=== PATIENT | male | born 1930 | race Caucasian/White ===

== ENCOUNTER 2017-10-09 13:28 | Inpatient (IN) | payer MEDICARE, OTHER ==
[2017-10-09] MEDS ORDERED: MORPHINE SULFATE 2 MG/ML DISP.SYRIN. IV (14:00)
[2017-10-09] MEDS ORDERED: MORPHINE SULFATE 4 MG/ML DISP.SYRIN. IV (14:00)
[2017-10-09] MEDS ORDERED: ONDANSETRON PF 4 MG/2 ML VIAL. IV (14:15)
[2017-10-09] MEDS: IV NORMAL SALINE 1000ML BAG 1,000 ML IV (14:43)
[2017-10-09] MEDS: cefTRIAXone IV Push 1 GM VIAL. IVP (14:45)
[2017-10-09] MEDS ORDERED: HYDROcodone/APAP 5/325MG 1 TAB TABLET PO (15:15)
[2017-10-09 17:03] LABS: POC GLUCOSE 133 mg/dL (70-99)
[2017-10-09 20:25] LABS: POC GLUCOSE 132 mg/dL (70-99)
[2017-10-09] MEDS: LACTOBACILLUS RHAMNOSUS GG 1 CAPSULE. PO (21:09)
[2017-10-09] MEDS: TAMSULOSIN 0.4 MG CAP.ER.24H. PO (21:09)
[2017-10-09] MEDS: HYDROcodone/APAP 5/325MG 1 TAB TABLET PO (21:11)
[2017-10-10] MEDS: IV NORMAL SALINE 1000ML BAG 1,000 ML IV ×2 (06:35→16:40)
[2017-10-10 07:38] LABS: POC GLUCOSE 111 mg/dL (70-99)
[2017-10-10] MEDS: LACTOBACILLUS RHAMNOSUS GG 1 CAPSULE. PO (08:37)
[2017-10-10] MEDS ORDERED: ACETAMINOPHEN 325 MG TABLET. PO (09:00)
[2017-10-10 09:38] LABS: ADD MAN DIFF? NO
[2017-10-10 09:45] LABS: BASO % 1 % (0-3); EOS % 0 % (0-3); HEMATOCRIT 38.7 % (39.0-53.0); HEMOGLOBIN 12.9 g/dL (13.0-17.5); LYMPH # 0.6 x10^3/uL (1.0-4.8); LYMPH % 6 % (24-48); MEAN CORPUSCULAR HEMOGLOBIN 28 pg (25-35); MEAN CORPUSCULAR HGB CONC 33 g/dL (31-37); MEAN CORPUSCULAR VOLUME 84 fL (79-100); MONO # 1.4 x10^3/uL (0.0-1.1); MONO % 14 % (0-9); NEUT % 80 % (31-73); PLATELET COUNT 157 x10^3/uL (140-400); RED CELL DISTRIBUTION WIDTH 17.2 % (11.5-14.5)
[2017-10-10 09:49] LABS: ANION GAP 4 (6-14); BLOOD UREA NITROGEN 18 mg/dL (8-26); CARBON DIOXIDE 28 mmol/L (21-32); CHLORIDE 103 mmol/L (98-107); CREATININE 1.2 mg/dL (0.7-1.3); GFR 57.4; GLUCOSE 146 mg/dL (70-99); POTASSIUM 3.5 mmol/L (3.5-5.1); SODIUM 135 mmol/L (136-145)
[2017-10-10 11:26] LABS: POC GLUCOSE 115 mg/dL (70-99)
[2017-10-10] MEDS: ACETAMINOPHEN/CODEINE 300/30MG TABLET. PO (12:45)
[2017-10-10] MEDS ORDERED: ACETAMINOPHEN/CODEINE 300/30MG TABLET. PO (12:45)
[2017-10-10] MEDS: MAGNESIUM HYDROXIDE 2,400 MG/30 ML ORAL.SUSP. PO (13:45)
[2017-10-10] MEDS ORDERED: IOHEXOL 300 MG/ML 100ML VIAL. (14:31)
[2017-10-10] MEDS ORDERED: LIDOCAINE 2% JELLY 6ML IN APPLICATOR. (14:31)
[2017-10-10] MEDS: cefTRIAXone IV Push 1 GM VIAL. IVP (14:49)
[2017-10-10] MEDS: SODIUM PHOSPHATES 19/7GM 133 ML ENEMA. PR (14:51)
[2017-10-10] MEDS ORDERED: PROPOFOL 20 ML IV (17:11)
[2017-10-10] MEDS ORDERED: LIDOCAINE 2% PF Vial for OR 5 ML VIAL. (17:11)
[2017-10-10] MEDS ORDERED: ONDANSETRON PF 4 MG/2 ML VIAL. (17:11)
[2017-10-10] MEDS ORDERED: SEVOFLURANE 31 TO 60 MINUTES. IH (17:11)
[2017-10-10 17:12] LABS: POC GLUCOSE 116 mg/dL (70-99)
[2017-10-10] MEDS: IV RINGERS,LACTATED 1000ML 1,000 ML IV (17:31)
[2017-10-11 07:23] LABS: POC GLUCOSE 113 mg/dL (70-99)
== END 2017-10-10 21:35 | disposition home or self-care (01) | DRG 697 ==
LOC: 4 NORTH 13:28
PROVIDERS: Internal Medicine
PROC: 0T778DZ Dilation of Left Ureter with Intraluminal Device, Via Natural or Artificial Opening Endoscopic (ICD-10-PCS; principal; 2017-10-10 16:00)
PROC: 0T7D8ZZ Dilation of Urethra, Via Natural or Artificial Opening Endoscopic (ICD-10-PCS; 2017-10-10 16:00)
DX: N35.9 Urethral stricture, unspecified (principal); N13.2 Hydronephrosis with renal and ureteral calculous obstruction; Z86.73 Personal history of transient ischemic attack (TIA), and cerebral infarction without residual deficits; J44.9 Chronic obstructive pulmonary disease, unspecified; I48.91 Unspecified atrial fibrillation; I25.10 Atherosclerotic heart disease of native coronary artery without angina pectoris; I10 Essential (primary) hypertension; E78.5 Hyperlipidemia, unspecified; E11.9 Type 2 diabetes mellitus without complications; Z83.3 Family history of diabetes mellitus; Z88.2 Allergy status to sulfonamides; Z95.1 Presence of aortocoronary bypass graft
CPT/HCPCS: 36415; 76001; 80048; 82962; 85025; A7015; C1769; C2617; J0696; J2001; J2405; J2704; J7030; Q9967